=== PATIENT | male | born 1980 | race Caucasian/White ===

== ENCOUNTER 2016-04-18 10:51 | Emergency (ER) | payer OTHER ==
[~2016-04-18] VITALS: Ht 180.3 cm; Wt 136.1 kg
[~2016-04-18 10:51] MED LIST: BACTRIM DS 8001 TA1; KEFLEX500 M1; MOTRIN800 MG PO; UNK HTN MED
--- NOTE | 2016-04-18 10:54 | NUR ---
PT TO BED 1
[2016-04-18 10:56] VITALS: BP 170/106
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
--- NOTE | 2016-04-18 11:11 | NUR ---
[place] [facility] AT BEDSIDE
--- NOTE | 2016-04-18 11:21 | NUR ---
JORGEO PT TAKEN TO CT BY TECH
[2016-04-18] MEDS ORDERED: ONDANSETRON 4 MG/2 ML VIAL IM ONE (12:45)
[2016-04-18] MEDS ORDERED: HYDROmorphone 1 MG/ML AMP IM ONE (12:45)
[2016-04-18 13:27] VITALS: BP 136/92
--- NOTE | 2016-04-18 13:27 | NUR ---
Patient discharged with v/s stable. Written and verbal after care instructions given and explained.Patient alert, oriented and verbalized understanding of instructions. Ambulatory with steady gait. All questions addressed prior to discharge. ID band removed. Patient advised to follow up with PMD. Rx of FLEXERIL, MOTRIN given. Patient educated on indication of medication including possible reaction and side effects. Opportunity to ask questions provided and answered.
== END 2016-04-18 13:27 | disposition home or self-care (01) ==
LOC: MED 10:51
DX: M54.5 Low back pain (principal); J45.909 Unspecified asthma, uncomplicated; I10 Essential (primary) hypertension; V43.52XA Car driver injured in collision with other type car in traffic accident, initial encounter; Y93.89 Activity, other specified; Y92.89 Other specified places as the place of occurrence of the external cause; Y99.8 Other external cause status
CPT/HCPCS: 72110; 96372; 99284; J1170; J2405

== ENCOUNTER 2017-04-11 12:26 | Emergency (ER) | payer OTHER ==
[~2017-04-11] VITALS: Ht 175.3 cm; Wt 113.4 kg
[~2017-04-11 12:26] MED LIST changes: -BACTRIM DS 8001 TA1; +IBUP-974 PO; -KEFLEX500 M1; -MOTRIN800 MG PO; -UNK HTN MED
[2017-04-11 12:29] VITALS: BP 160/90
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
--- NOTE | 2017-04-11 13:08 | NUR ---
DR GALLARDO EVALUATING PT AT BEDSIDE
[2017-04-11] MEDS ORDERED: NACL 0.9% 2,000 ML IV ONE (13:20)
[2017-04-11] MEDS ORDERED: NALOXONE PFS 2 MG/2 ML SYR IVP ONE (13:20)
--- NOTE | 2017-04-11 13:30 | NUR ---
PT TAKEN TO CT AND XRAY
[2017-04-11 14:11] LABS: BASOPHILS # (AUTO) 0.4 K/uL (0.00-0.22); EOSINOPHILS # (AUTO) 0.3 K/uL (0-0.4); HEMATOCRIT 41.9 % (36-52); HEMOGLOBIN 13.7 g/dL (12.0-18.0); LYMPHOCYTES # (AUTO) 2.4 K/uL (2.0-11.5); MEAN CORPUSCULAR HEMOGLOBIN 27 pg (27-31); MEAN CORPUSCULAR HGB CONC 33 g/dL (33-37); MEAN CORPUSCULAR VOLUME 82 fL (80-94); MONOCYTES # (AUTO) 0.8 K/uL (0.8-1.0); NEUTROPHILS # (AUTO) 6.1 K/uL (1.8-7.7); PLATELET COUNT (AUTO) 286 K/uL (140-450); RED BLOOD CELL COUNT(AUTO) 5.09 MIL/uL (4.20-6.10); RED CELL DISTRIBUTION WIDTH 13.8 % (11.6-13.7)
[2017-04-11] MEDS ORDERED: PROCHLORPERAZINE 10 MG/2 ML VIAL IVP ONE (14:15)
[2017-04-11] MEDS ORDERED: diphenhydrAMINE 50 MG/ML VIAL IVP ONE (14:15)
[2017-04-11] MEDS ORDERED: KETOROLAC 30 MG/ML VIAL IVP ONE (14:15)
[2017-04-11 14:25] LABS: ANION GAP 14.3 (8-16); CARBON DIOXIDE 26.6 mmol/L (21-32); CHLORIDE 103 mmol/L (98-107); CREATININE 0.9 mg/dL (0.7-1.3); GFR ARICAN-AMERICAN 122 mL/min (>90); GLUCOSE 92 mg/dL (74-106); POTASSIUM 3.9 mmol/L (3.5-5.1); SODIUM SERUM 140 mmol/L (136-145); UREA NITROGEN, BLOOD 13 mg/dL (7-18)
[2017-04-11 14:39] LABS: ALBUMIN 3.7 g/dL (3.4-5.0); ASPARTATE AMINOTRANSFERASE 25 U/L (15-37); THYROID STIMULATING HORMONE 2.62 uIU/mL (0.34-3.74); TOTAL BILIRUBIN 0.7 mg/dL (0.0-1.0)
[2017-04-11 14:40] LABS: ACETAMINOPHEN < 0.5 ug/ml (10-30); SALICYLATE < 2.8 mg/dL (2.8-20.0)
[2017-04-11 15:42] VITALS: BP 102/69
--- NOTE | 2017-04-11 15:42 | NUR ---
Patient discharged with v/s stable. Written and verbal after care instructions given and explained. Patient alert, oriented and verbalized understanding of instructions. Wheel Chair Assisted with to car. All questions addressed prior to discharge. ID band removed. Patient advised to follow up with PMD. Rx of REGLAN, ACETAMINOPHEN, BENADRYL given. Patient educated on indication of medication including possible reaction and side effects. Opportunity to ask questions provided and answered.
== END 2017-04-11 15:42 | disposition home or self-care (01) ==
LOC: MED 12:26
DX: F41.8 Other specified anxiety disorders (principal); J45.909 Unspecified asthma, uncomplicated; I10 Essential (primary) hypertension; Z88.5 Allergy status to narcotic agent
CPT/HCPCS: 36415; 70450; 71045; 80053; 82550; 82948; 84443; 84484; 85025; 93005; 96361; 96374; 96375; 99285; G0480; G0482; J0780; J1200; J1885; J2310; J7030; Q0092

== ENCOUNTER 2018-02-04 17:08 | Emergency (ER) | payer OTHER ==
[~2018-02-04] VITALS: Ht 177.8 cm; Wt 153.4 kg
[2018-02-04 17:20] VITALS: BP 147/63
[2018-02-04] MEDS ORDERED: ALBUTEROL SULFATE/IPRATROPIU 3 ML SOL IH ONE (17:20)
[2018-02-04] MEDS ORDERED: ALBUTEROL 0.083% 2.5 MG/3 ML NEBU INH ONE (17:20)
[2018-02-04] MEDS ORDERED: predniSONE 20 MG TAB PO ONE (17:35)
[2018-02-04 18:30] VITALS: BP 144/86
== END 2018-02-04 18:30 | disposition home or self-care (01) ==
LOC: MED 17:08
DX: J45.901 Unspecified asthma with (acute) exacerbation (principal); I10 Essential (primary) hypertension; Z79.899 Other long term (current) drug therapy; Z88.5 Allergy status to narcotic agent
CPT/HCPCS: 94640; 94760; 99283; J7512; J7613; J7620

== ENCOUNTER 2018-06-20 13:54 | Emergency (ER) | payer OTHER ==
[~2018-06-20] VITALS: Ht 177.8 cm; Wt 155.6 kg
[2018-06-20 14:02] VITALS: BP 150/90
--- NOTE | 2018-06-20 14:07 | NUR ---
PT AMBULATED TO BED 09.
--- NOTE | 2018-06-20 14:16 | NUR ---
PATIENT PRESENTS TO ED WITH bue sharp pain from elbow down to wrist---x 2 wks 'denies recent injury---+2 radial pulses <3 sec cap refill full rom . DENIES N/V/D; SKIN IS PINK/WARM/DRY; AAOX4 WITH EVEN AND STEADY GAIT; LUNGS CLEAR BL; HR EVEN AND REGULAR; PT DENIES ANY FEVER, CP, SOB, OR COUGH AT THIS TIME; PATIENT STATES PAIN OF 8/10 AT THIS TIME; VSS; PATIENT POSITIONED FOR COMFORT; HOB ELEVATED; BEDRAILS UP X2; BED DOWN. ER MD MADE AWARE OF PT STATUS.
--- NOTE | 2018-06-20 14:39 | NUR ---
x-ray at bedside
[2018-06-20 16:00] VITALS: BP 138/82
--- NOTE | 2018-06-20 16:00 | NUR ---
Patient discharged with v/s stable. Written and verbal after care instructions given and explained. Patient verbalized understanding. Ambulatory with steady gait. All questions addressed prior to discharge. Advised to follow up with PMD.
== END 2018-06-20 16:00 | disposition home or self-care (01) ==
LOC: MED 13:54
DX: E11.40 Type 2 diabetes mellitus with diabetic neuropathy, unspecified (principal); J45.909 Unspecified asthma, uncomplicated; I10 Essential (primary) hypertension; Z88.5 Allergy status to narcotic agent; Z79.899 Other long term (current) drug therapy
CPT/HCPCS: 73080; 99283; Q0092

== ENCOUNTER 2018-07-21 09:06 | Emergency (ER) | payer OTHER ==
[~2018-07-21] VITALS: Ht 177.8 cm; Wt 155.8 kg
[2018-07-21 09:07] VITALS: BP 150/97
--- NOTE | 2018-07-21 09:17 | NUR ---
PATIENT AMBULATED TO BED 8
--- NOTE | 2018-07-21 09:32 | NUR ---
PATIENT PRESENTS TO ED WITH C/O LT KNEE PAIN X 1 DAY. PATIENT STATES PAIN OF 7/10 AT THIS TIME; VSS; PATIENT POSITIONED FOR COMFORT; BEDRAILS UP X1; BED DOWN. PENDING ER MD EVALUATION.
--- NOTE | 2018-07-21 09:33 | NUR ---
DR GONZALEZ AT BEDSIDE EVALUATION PT.
--- NOTE | 2018-07-21 09:45 | NUR ---
pt taken to radiology by extrusion technician via wheelchair.
--- NOTE | 2018-07-21 09:55 | NUR ---
PT BACK FROM RADIOLOGY.
--- NOTE | 2018-07-21 10:25 | NUR ---
KARMA WRAP APPLIED TO LEFT KNEE
--- NOTE | 2018-07-21 10:26 | NUR ---
Patient discharged with v/s stable. Written and verbal after care instructions given and explained. Patient alert, oriented and verbalized understanding of instructions. Ambulatory with steady gait. All questions addressed prior to discharge. ID band removed. Patient advised to follow up with PMD. Rx of IBUPROFEN AND NORCO given. Patient educated on indication of medication including possible reaction and side effects. Opportunity to ask questions provided and answered.
== END 2018-07-21 10:26 | disposition home or self-care (01) ==
LOC: MED 09:06
DX: M25.562 Pain in left knee (principal); J45.909 Unspecified asthma, uncomplicated; E11.9 Type 2 diabetes mellitus without complications; I10 Essential (primary) hypertension; Z88.5 Allergy status to narcotic agent; Z79.899 Other long term (current) drug therapy
CPT/HCPCS: 73560; 99283

== ENCOUNTER 2018-09-01 19:35 | Emergency (ER) | payer OTHER ==
[~2018-09-01] VITALS: Ht 177.8 cm; Wt 154.2 kg
[2018-09-01 19:35] VITALS: BP 128/92
--- NOTE | 2018-09-01 19:38 | NUR ---
TO LOBBY A/W BED, XRAY VIA W/C.
--- NOTE | 2018-09-01 21:00 | NUR ---
pt was wheel chaired to bed #10
--- NOTE | 2018-09-01 21:10 | NUR ---
37/M PRESENTS TO ED, C/O R ANKLE PAIN RADIATING TO RLE, STARTED WHILE WALKING, X1 DAY. NO OBVIOUS ABNORMALITY, SWELLING, ERYTHEMA OR BRUISING NOTED ON R ANKLE, TENDER TO TOUCH. PT AWAKE AND ALERT, SKIN NORMAL WARM AND DRY, RR EVEN AND UNLABORED. HX HTN, DM, PREVIOUS R ANKLE FX (20 YEARS AGO)
[2018-09-01] MEDS ORDERED: IBUPROFEN 800 MG TAB PO ONE (21:30)
[2018-09-01 21:45] VITALS: BP 145/81
== END 2018-09-01 21:45 | disposition home or self-care (01) ==
LOC: MED 19:35
DX: S93.401A Sprain of unspecified ligament of right ankle, initial encounter (principal); I10 Essential (primary) hypertension; E11.9 Type 2 diabetes mellitus without complications; J45.909 Unspecified asthma, uncomplicated; Z79.1 Long term (current) use of non-steroidal anti-inflammatories (NSAID); X58.XXXA Exposure to other specified factors, initial encounter; Y93.01 Activity, walking, marching and hiking; Y92.89 Other specified places as the place of occurrence of the external cause; Y99.8 Other external cause status
CPT/HCPCS: 29515; 73610; 99283

== ENCOUNTER 2018-09-05 08:33 | Emergency (ER) | payer OTHER ==
[~2018-09-05] VITALS: Ht 177.8 cm; Wt 157.9 kg
[2018-09-05 08:40] VITALS: BP 139/75
--- NOTE | 2018-09-05 08:41 | NUR ---
PT AMB TO ER BED 7
--- NOTE | 2018-09-05 08:50 | NUR ---
BIB SELF C/O INTERMITTENTR HAND PAIN BILATERALLY, SHARP, 6/10 FOR MONTHS. DENIES INJURY OR TRAUMA TO HEAD, NECK, OR SPINE. DENIES N/V/D; PT DENIES ANY FEVER, CP, SOB, OR COUGH AT THIS TIME; PATIENT STATES PAIN OF 6/10 AT THIS TIME; VSS; PATIENT POSITIONED FOR COMFORT; HOB ELEVATED; BEDRAILS UP X1; BED DOWN. ER MD MADE AWARE OF PT STATUS.
[2018-09-05 10:15] VITALS: BP 129/72
--- NOTE | 2018-09-05 10:15 | NUR ---
Patient discharged with v/s stable. Written and verbal after care instructions given and explained. Patient alert, oriented and verbalized understanding of instructions. Ambulatory with steady gait. All questions addressed prior to discharge. ID band removed. Patient advised to follow up with PMD. Rx of Gabapentin and Motrin given. Patient educated on indication of medication including possible reaction and side effects. Opportunity to ask questions provided and answered.
== END 2018-09-05 10:15 | disposition home or self-care (01) ==
LOC: MED 08:33
DX: G56.03 Carpal tunnel syndrome, bilateral upper limbs (principal); J45.909 Unspecified asthma, uncomplicated; E11.9 Type 2 diabetes mellitus without complications; I10 Essential (primary) hypertension; Z79.899 Other long term (current) drug therapy; Z88.5 Allergy status to narcotic agent
CPT/HCPCS: 99283

== ENCOUNTER 2018-09-19 22:38 | Emergency (ER) | payer OTHER ==
[~2018-09-19] VITALS: Ht 177.8 cm; Wt 152.0 kg
[2018-09-19 22:40] VITALS: BP 167/102
--- NOTE | 2018-09-19 23:15 | NUR ---
PT WAS WHEEL CHAIRED TO BED #11
--- NOTE | 2018-09-19 23:20 | NUR ---
37/M PRESENTED TO ED. C/O LEFT ANKLE PAIN, SWELLING. 7/10 PAIN. HX GOUT,WITH PRESCRIPTION, NO TRAUMA. NO INJURY. STATES HE ATE RED MEATS YESTERDAY AND WOKE UP WITH INFLAMATION. TOOK GOUT MEDICATION PRESCRIBED. WILL CONTINUE TO MONITOR.
[2018-09-19] MEDS ORDERED: KETOROLAC 30 MG/ML VIAL IM ONE (23:40)
--- NOTE | 2018-09-20 00:20 | NUR ---
PT RESTING IN BED. EVEN UNLABORED BREATHING. ABLE TO MAKE NEEDS KNOWN. NO PAIN AT THIS TIME. WILL CONTINUE TO MONITOR.
[2018-09-20 01:15] VITALS: BP 167/102
== END 2018-09-20 01:15 | disposition home or self-care (01) ==
LOC: MED 22:38
DX: M10.9 Gout, unspecified (principal); I10 Essential (primary) hypertension; Z79.1 Long term (current) use of non-steroidal anti-inflammatories (NSAID); Z88.6 Allergy status to analgesic agent
CPT/HCPCS: 96372; 99283; J1885

== ENCOUNTER 2018-11-23 14:05 | Emergency (ER) | payer OTHER ==
[~2018-11-23] VITALS: Ht 177.8 cm; Wt 148.8 kg
[2018-11-23 14:25] VITALS: BP 135/86
--- NOTE | 2018-11-23 14:32 | NUR ---
WAIT AT [facility]. AAOX4
--- NOTE | 2018-11-23 15:02 | NUR ---
PT AMB TO BED 2
--- NOTE | 2018-11-23 15:16 | NUR ---
C/O NAUSEA, EPIGASTRIC PAIN X 3 HOURS AGO. BLOOD SUGAR 83 AT THIS TIME. DENIES VOMITING OR DIARRHEA. ABDOMEN LARGE AND ROUND, SOFT. NONTENDER TO TOUCH. VSS. AA0X4. BED IS DOWN, LOCKED, BED RAIL X 1, ERM DTO SEE PT. MED HX:ASTHMA, HTN, DM
[2018-11-23 15:45] LABS: BASOPHILS % (AUTO) 0.4 % (0.0-2.0); EOSINOPHILS # (AUTO) 0.3 K/uL (0-0.4); EOSINOPHILS % (AUTO) 2.4 % (0.0-4.0); HEMATOCRIT 41.1 % (36-52); HEMOGLOBIN 13.6 g/dL (12.0-18.0); LYMPHOCYTES # (AUTO) 2.1 K/uL (2.0-11.5); LYMPHOCYTES % (AUTO) 19.9 % (20.5-51.1); MEAN CORPUSCULAR HEMOGLOBIN 29 pg (27-31); MEAN CORPUSCULAR HGB CONC 33 g/dL (33-37); MEAN CORPUSCULAR VOLUME 87.6 fL (80-94); MONOCYTES # (AUTO) 0.8 K/uL (0.8-1.0); MONOCYTES % (AUTO) 8.1 % (1.7-9.3); NEUTROPHILS # (AUTO) 7.2 K/uL (1.8-7.7); NEUTROPHILS % (AUTO) 69.2 % (42.2-75.2); PLATELET COUNT (AUTO) 247 K/uL (140-450); RED BLOOD CELL COUNT(AUTO) 4.68 MIL/uL (4.20-6.10); RED CELL DISTRIBUTION WIDTH 14.5 % (11.6-13.7); WHITE BLOOD COUNT (AUTO) 10.4 K/uL (4.8-10.8)
[2018-11-23 15:50] LABS: APPEARANCE,URINE CLEAR (CLEAR); BILIRUBIN,URINE NEGATIVE (NEGATIVE); BLOOD, URINE NEGATIVE (NEGATIVE); COLOR,URINE YELLOW (YELLOW); LEUKOCYTE ESTERASE ,URINE NEGATIVE (NEGATIVE); NITRITE, URINE NEGATIVE (NEGATIVE); PH,URINE 5.5 (5.0-9.0); UGLUCOSE NEGATIVE (NEGATIVE)
[2018-11-23 15:59] LABS: ANION GAP 11.9 (8-16); CARBON DIOXIDE 27.8 mmol/L (21-32); CREATININE 0.8 mg/dL (0.7-1.3); POTASSIUM 3.7 mmol/L (3.5-5.1)
[2018-11-23 16:04] LABS: ALBUMIN 3.7 g/dL (3.4-5.0); TOTAL BILIRUBIN 0.9 mg/dL (0.0-1.0)
[2018-11-23] MEDS ORDERED: ONDANSETRON 4 MG ODT PO ONE (16:35)
--- NOTE | 2018-11-23 17:20 | NUR ---
PT RESTING IN BED, CRACKERS AND WATER GEVN TO PT FOR PO CHALLENGE
[2018-11-23] MEDS ORDERED: IBUPROFEN 600 MG TAB PO ONE (17:30)
[2018-11-23 17:40] VITALS: BP 126/69
--- NOTE | 2018-11-23 17:40 | NUR ---
Patient discharged with v/s stable. Written and verbal after care instructions given and explained. Patient verbalized understanding. Ambulatory with steady gait. All questions addressed prior to discharge. Advised to follow up with PMD. PT INSTRUCTED THAT HE HAS A VIRAL INFECTION, THEREFORE, ANTIBIOTICS ARE NOT EFFECTIVE INSTRUCTED TO USE TYLENOL FOR PAIN
== END 2018-11-23 17:40 | disposition home or self-care (01) ==
LOC: MED 14:05
DX: B34.9 Viral infection, unspecified (principal); J45.909 Unspecified asthma, uncomplicated; E11.9 Type 2 diabetes mellitus without complications; I10 Essential (primary) hypertension; Z88.5 Allergy status to narcotic agent; Z79.899 Other long term (current) drug therapy
CPT/HCPCS: 36415; 80053; 81003; 83690; 85025; 99283; Q0162; 82948

== ENCOUNTER 2019-01-26 08:08 | Emergency (ER) | payer OTHER ==
[~2019-01-26] VITALS: Ht 177.8 cm; Wt 147.0 kg
[2019-01-26 08:17] VITALS: BP 142/93
--- NOTE | 2019-01-26 08:27 | NUR ---
PATIENT AMBULATED STEADY GAIT TO BED 7.
--- NOTE | 2019-01-26 08:37 | NUR ---
38 y/o m c/o ruq pain x1 day that is worse with deep breath in, otherswise constant, sharp, does not radiate. pt states diahrea today. no n/v/f. pt positioned for comfort, bed lowered, x1 side rail in place. allergies: morphine medhx: htn
--- NOTE | 2019-01-26 08:59 | NUR ---
PATIENT TAKEN FOR XRAY VIA WHEELCHAIR AT THIS TIME.
--- NOTE | 2019-01-26 09:08 | NUR ---
PT RETURNED FROM X-RAY.
--- NOTE | 2019-01-26 10:23 | NUR ---
ULTRASOUND AT BEDSIDE.
--- NOTE | 2019-01-26 10:35 | NUR ---
Rabia anderson in [facility] - 01/26/19 at 1041 by [facility] PT PUT ON S NC. Maria D
--- NOTE | 2019-01-26 10:44 | NUR ---
PT INFORMED WE ARE WAITING ON US RESULTS. PT POSITIONED FOR COMFORT.
[2019-01-26 11:13] VITALS: BP 130/74
== END 2019-01-26 11:13 | disposition home or self-care (01) ==
LOC: MED 08:08
DX: S39.012A Strain of muscle, fascia and tendon of lower back, initial encounter (principal); R19.7 Diarrhea, unspecified; J45.909 Unspecified asthma, uncomplicated; E11.9 Type 2 diabetes mellitus without complications; I10 Essential (primary) hypertension; Z88.5 Allergy status to narcotic agent; Z79.899 Other long term (current) drug therapy; X58.XXXA Exposure to other specified factors, initial encounter; Y93.89 Activity, other specified; Y92.89 Other specified places as the place of occurrence of the external cause; Y99.8 Other external cause status
CPT/HCPCS: 74022; 76770; 81002; 82948; 99284; Q0092

== ENCOUNTER 2019-10-25 10:52 | Emergency (ER) | payer OTHER ==
[~2019-10-25] VITALS: Ht 180.3 cm; Wt 147.4 kg
[2019-10-25 10:55] VITALS: BP 139/88
--- NOTE | 2019-10-25 11:14 | NUR ---
39 YO MALE PT STATES FEELS LIKE POSSIBLE GOUT ATTACK, OR POSSIBLE BUG BITE. PAIN EVEN WITH SHEET OVER FOOT. DENIES FEVER, N/V.
[2019-10-25] MEDS ORDERED: KETOROLAC 60 MG/2 ML VIAL IM ONE (11:30)
--- NOTE | 2019-10-25 12:11 | NUR ---
toradol im administered
--- NOTE | 2019-10-25 12:20 | NUR ---
nadr, pain 05/18
[2019-10-25 12:21] VITALS: BP 130/74
--- NOTE | 2019-10-25 12:21 | NUR ---
Patient discharged with v/s stable. Written and verbal after care instructions given and explained. Patient alert, oriented and verbalized understanding of instructions. Ambulatory with steady gait. All questions addressed prior to discharge. ID band removed. Patient advised to follow up with PMD. Rx of norco and indomethacin given. Patient educated on indication of medication including possible reaction and side effects. Opportunity to ask questions provided and answered. instructions on crutches and foot immobilizer give by justin mistry, pt verbalized understanding of use via return demonstration. pt instructed to not drive after taking norco as it may impair driving and cause drowsiness
== END 2019-10-25 12:21 | disposition home or self-care (01) ==
LOC: MED 10:52
DX: M10.071 Idiopathic gout, right ankle and foot (principal); J45.909 Unspecified asthma, uncomplicated; E11.9 Type 2 diabetes mellitus without complications; I10 Essential (primary) hypertension; Z88.5 Allergy status to narcotic agent
CPT/HCPCS: 96372; 99283; J1885

== ENCOUNTER 2020-01-24 12:44 | Emergency (ER) | payer OTHER ==
[~2020-01-24] VITALS: Ht 180.3 cm; Wt 127.0 kg
[2020-01-24 12:57] VITALS: BP 155/104
--- NOTE | 2020-01-24 13:00 | NUR ---
39 Y/O MALE PRESENTS WITH BODY ACHES/FLU/ COUGH. NO RESP DISTRESS AT THIS TIME. VSS.
--- NOTE | 2020-01-24 13:46 | NUR ---
Patient discharged with v/s stable. Written and verbal after care instructions given and explained. Patient alert, oriented and verbalized understanding of instructions. Ambulatory with steady gait. All questions addressed prior to discharge. ID band removed. Patient advised to follow up with PMD. Rx of OMPERAZOLE, PROMETHAZINE, ZOFRAN, TYLENOL given. Patient educated on indication of medication including possible reaction and side effects. Opportunity to ask questions provided and answered.
--- NOTE | 2020-01-26 21:15 | NUR ---
Positive COVID-19 test results were received from lab. A copy of the test results were given to Infection Control.
== END 2020-01-24 13:46 | disposition home or self-care (01) ==
LOC: MED 12:44
DX: U07.1 COVID-19 (principal); J45.909 Unspecified asthma, uncomplicated; E11.9 Type 2 diabetes mellitus without complications; I10 Essential (primary) hypertension; Z79.1 Long term (current) use of non-steroidal anti-inflammatories (NSAID); Z88.5 Allergy status to narcotic agent
CPT/HCPCS: 99283; U0003

== ENCOUNTER 2020-02-07 10:10 | Emergency (ER) | payer OTHER ==
[~2020-02-07] VITALS: Ht 177.8 cm; Wt 149.7 kg
[2020-02-07 10:20] VITALS: BP 157/105
--- NOTE | 2020-02-07 11:37 | NUR ---
39 Y/O MALE C/O LETHARGY AND FATIGUE FOR PAST 4 WEEKS. DENIES ANY PAIN, STATES "I JUST DONT FEEL WELL" PT IS REQUESTING TO HAVE BLOOD DRAWN TO CHECK IRON LEVEL. RESP EVEN AND UNLABORED AAOX4. AMBULATORY WITH STEADY GAIT. DENIES ANY SOB OR COUGH.
[2020-02-07 12:28] LABS: BASOPHILS # (AUTO) 0.1 K/uL (0.00-0.22); BASOPHILS % (AUTO) 0.8 % (0.0-2.0); EOSINOPHILS # (AUTO) 0.1 K/uL (0-0.4); EOSINOPHILS % (AUTO) 1.5 % (0.0-4.0); HEMATOCRIT 43.7 % (36-52); HEMOGLOBIN 14.5 g/dL (12.0-18.0); LYMPHOCYTES # (AUTO) 2.1 K/uL (2.0-11.5); LYMPHOCYTES % (AUTO) 31.4 % (20.5-51.1); MEAN CORPUSCULAR HEMOGLOBIN 29 pg (27-31); MEAN CORPUSCULAR HGB CONC 33 g/dL (33-37); MEAN CORPUSCULAR VOLUME 86.8 fL (80-94); MONOCYTES # (AUTO) 0.6 K/uL (0.8-1.0); MONOCYTES % (AUTO) 8.9 % (1.7-9.3); NEUTROPHILS # (AUTO) 3.8 K/uL (1.8-7.7); NEUTROPHILS % (AUTO) 57.4 % (42.2-75.2); PLATELET COUNT (AUTO) 419 K/uL (140-450); RED BLOOD CELL COUNT(AUTO) 5.03 MIL/uL (4.20-6.10); WHITE BLOOD COUNT (AUTO) 6.6 K/uL (4.8-10.8)
[2020-02-07 12:46] LABS: ALBUMIN 3.9 g/dL (3.4-5.0); ANION GAP 13.4 (8-16); CARBON DIOXIDE 29.8 mmol/L (21-32); CREATININE 0.9 mg/dL (0.6-1.3); POTASSIUM 4.2 mmol/L (3.5-5.1)
[2020-02-07 13:27] VITALS: BP 157/105
--- NOTE | 2020-02-07 13:28 | NUR ---
Patient discharged with v/s stable. Written and verbal after care instructions given and explained. Patient alert, oriented and verbalized understanding of instructions. Ambulatory with steady gait. All questions addressed prior to discharge. ID band removed. Patient advised to follow up with PMD. Rx of prilosec given. Patient educated on indication of medication including possible reaction and side effects. Opportunity to ask questions provided and answered.
--- NOTE | 2020-02-08 16:48 | NUR ---
Covid results received from lab. Results = Positive. Hard copy requested from lab and placed in infection controls mailbox.
== END 2020-02-07 13:28 | disposition home or self-care (01) ==
LOC: MED 10:10
DX: R53.83 Other fatigue (principal); Z20.828 Contact with and (suspected) exposure to other viral communicable diseases; J45.909 Unspecified asthma, uncomplicated; E11.9 Type 2 diabetes mellitus without complications; I10 Essential (primary) hypertension; Z79.899 Other long term (current) drug therapy; Z88.5 Allergy status to narcotic agent
CPT/HCPCS: 36415; 80053; 85025; 99283; U0003

== ENCOUNTER 2022-04-06 02:50 | Emergency (ER) | payer OTHER ==
[~2022-04-06] VITALS: Ht 177.8 cm; Wt 148.8 kg
[2022-04-06 02:56] VITALS: BP 173/93
--- NOTE | 2022-04-06 03:01 | NUR ---
Patient taken to bed 7.
--- NOTE | 2022-04-06 03:03 | NUR ---
Dr. Quintanilla examining patient.
[2022-04-06] MEDS ORDERED: KETOROLAC 60 MG/2 ML VIAL IM ONE (03:05)
[2022-04-06] MEDS ORDERED: ONDA-188 PO (03:24)
[2022-04-06] MEDS ORDERED: COLC-30 PO (03:24)
[2022-04-06] MEDS ORDERED: IBUP-2213 PO (03:24)
[2022-04-06 03:30] VITALS: BP 152/82
--- NOTE | 2022-04-06 03:36 | NUR ---
Patient discharged with v/s stable. Written and verbal after care instructions given and explained. Patient verbalized understanding. Ambulatory with steady gait. All questions addressed prior to discharge. Advised to follow up with PMD. PT LEFT WITH HIS BELONINGS.
== END 2022-04-06 03:36 | disposition home or self-care (01) ==
LOC: MED 02:50
DX: M10.9 Gout, unspecified (principal); J45.909 Unspecified asthma, uncomplicated; I10 Essential (primary) hypertension; E11.9 Type 2 diabetes mellitus without complications; Z79.4 Long term (current) use of insulin; Z79.899 Other long term (current) drug therapy
CPT/HCPCS: 96372; 99283; J1885

== ENCOUNTER 2022-10-02 12:24 | Emergency (ER) | payer OTHER ==
[~2022-10-02] VITALS: Ht 180.3 cm; Wt 122.5 kg
[~2022-10-02 12:24] MED LIST changes: +COLC-30 PO; +IBUP-2213 PO; +ONDA-188 PO
[2022-10-02 12:48] VITALS: BP 150/91; PULSE 58; RESP 18; TEMP 98.7; O2SAT 95
[2022-10-02 13:57] LABS: FLU A ANTIGEN negative (NEGATIVE); FLU B ANTIGEN NEGATIVE (NEGATIVE)
[2022-10-02 14:31] VITALS: BP 138/89; PULSE 60; RESP 18; TEMP 98.7; O2SAT 96
== END 2022-10-02 14:31 | disposition home or self-care (01) ==
LOC: MED 12:24
DX: B34.9 Viral infection, unspecified (principal); Z20.822 Contact with and (suspected) exposure to COVID-19
CPT/HCPCS: 99283

== ENCOUNTER 2022-12-21 10:00 | Emergency (ER) | payer OTHER ==
[~2022-12-21] VITALS: Ht 180.3 cm; Wt 127.9 kg
[2022-12-21 10:24] VITALS: BP 140/93; PULSE 72; RESP 18; TEMP 98.4; O2SAT 98
[2022-12-21 10:36] LABS: BASOPHILS % (AUTO) 0.2 % (0.0-2.0); EOSINOPHILS # (AUTO) 0.1 K/uL (0-0.4); EOSINOPHILS % (AUTO) 0.6 % (0.0-4.0); HEMATOCRIT 42.6 % (36-52); HEMOGLOBIN 14.3 g/dL (12.0-18.0); LYMPHOCYTES # (AUTO) 1.4 K/uL (2.0-11.5); MEAN CORPUSCULAR HEMOGLOBIN 29 pg (27-31); MEAN CORPUSCULAR HGB CONC 34 g/dL (33-37); MEAN CORPUSCULAR VOLUME 86.6 fL (80-94); MONOCYTES # (AUTO) 0.7 K/uL (0.8-1.0); MONOCYTES % (AUTO) 7.3 % (1.7-9.3); NEUTROPHILS # (AUTO) 6.8 K/uL (1.8-7.7); NEUTROPHILS % (AUTO) 75.9 % (42.2-75.2); PLATELET COUNT (AUTO) 277 K/uL (140-450); RED BLOOD CELL COUNT(AUTO) 4.91 MIL/uL (4.20-6.10); RED CELL DISTRIBUTION WIDTH 13.9 % (11.6-13.7); WHITE BLOOD COUNT (AUTO) 8.9 K/uL (4.8-10.8)
[2022-12-21 10:48] LABS: ALBUMIN 3.8 g/dL (3.4-5.0); ANION GAP 11.9 (8-16); CALCIUM 8.8 mg/dL (8.5-10.1); CARBON DIOXIDE 25.9 mmol/L (21-32); CREATININE 0.9 mg/dL (0.6-1.3); POTASSIUM 3.8 mmol/L (3.5-5.1); TOTAL BILIRUBIN 1.4 mg/dL (0.0-1.0); TOTAL PROTEIN, SERUM 8.7 g/dL (6.4-8.2)
[2022-12-21] MEDS ORDERED: LOPERAMIDE 2 MG CAP PO ONE (11:00)
[2022-12-21] MEDS ORDERED: ONDANSETRON 4 MG ODT PO ONE (11:00)
[2022-12-21] MEDS ORDERED: DICYCLOMINE 20 MG/2 ML VIAL IM ONE (11:00)
[2022-12-21] MEDS ORDERED: LOPE1TAB14 PO (11:47)
[2022-12-21] MEDS ORDERED: ONDA-188 PO (11:47)
[2022-12-21] MEDS ORDERED: CIPR500T4 PO (11:47)
== END 2022-12-21 12:16 | disposition home or self-care (01) ==
LOC: MED 10:00
DX: K52.9 Noninfective gastroenteritis and colitis, unspecified (principal); J45.909 Unspecified asthma, uncomplicated; I10 Essential (primary) hypertension; E11.9 Type 2 diabetes mellitus without complications; Z79.4 Long term (current) use of insulin; Z79.899 Other long term (current) drug therapy; Z88.5 Allergy status to narcotic agent
CPT/HCPCS: 36415; 71045; 80053; 82272; 83690; 85025; 87045; 87070; 87427; 89055; 93005; 96372; 99285; J0500; Q0162

== ENCOUNTER 2023-03-01 08:13 | Emergency (ER) | payer BC, OTHER ==
[~2023-03-01] VITALS: Ht 175.3 cm; Wt 90.7 kg
[~2023-03-01 08:13] MED LIST changes: +CIPR500T4 PO; +LOPE1TAB14 PO
[2023-03-01 08:47] VITALS: BP 132/70; PULSE 89; RESP 18; TEMP 98; O2SAT 98
[2023-03-01] MEDS ORDERED: KETOROLAC 30 MG/ML VIAL IM ONE (11:25)
[2023-03-01] MEDS ORDERED: IBUP-1842 PO ×2 (11:26→11:54)
[2023-03-01] MEDS ORDERED: COLC-30 PO ×2 (11:26→11:54)
[2023-03-01 11:53] VITALS: BP 132/70; PULSE 89; RESP 18; TEMP 98; O2SAT 98
== END 2023-03-01 11:53 | disposition home or self-care (01) ==
LOC: MED 08:13
DX: M13.871 Other specified arthritis, right ankle and foot (principal); M10.9 Gout, unspecified; J45.909 Unspecified asthma, uncomplicated; I10 Essential (primary) hypertension; E11.9 Type 2 diabetes mellitus without complications; Z88.5 Allergy status to narcotic agent; Z79.4 Long term (current) use of insulin; Z79.899 Other long term (current) drug therapy
CPT/HCPCS: 96372; 99283; J1885

== ENCOUNTER 2023-04-02 11:00 | Emergency (ER) | payer BC, OTHER ==
[~2023-04-02] VITALS: Ht 180.3 cm; Wt 127.0 kg
[~2023-04-02 11:00] MED LIST changes: +IBUP-1842 PO
[2023-04-02 11:06] VITALS: BP 155/95; PULSE 63; RESP 16; TEMP 98.4; O2SAT 97
[2023-04-02] MEDS ORDERED: INDO-305 PO (12:34)
[2023-04-02] MEDS: KETOROLAC 30 MG/ML VIAL IM ONE (12:36)
== END 2023-04-02 12:50 | disposition home or self-care (01) ==
LOC: MED 11:00
DX: M10.071 Idiopathic gout, right ankle and foot (principal); J45.909 Unspecified asthma, uncomplicated; E11.9 Type 2 diabetes mellitus without complications; I10 Essential (primary) hypertension; Z79.899 Other long term (current) drug therapy; Z88.5 Allergy status to narcotic agent
CPT/HCPCS: 96372; 99283; J1885